=== PATIENT | male | born 1985 | race Caucasian/White ===

== ENCOUNTER 2021-03-16 10:42 | Emergency (ER) | payer BC ==
[~2021-03-16] VITALS: Ht 170.2 cm; Wt 59.0 kg
[2021-03-16 18:28] VITALS: BP 110/56
== END 2021-03-16 13:13 | disposition home or self-care (01) ==
LOC: ER 11:19
DX: M54.2 Cervicalgia (principal); M25.512 Pain in left shoulder
CPT/HCPCS: 71045; 93005; 99282